=== PATIENT | female | born 1970 | race Caucasian/White ===

== ENCOUNTER 2020-02-12 15:24 | Emergency (ER) | payer SELFPAY ==
[2020-02-12] MEDS ORDERED: SODIUM CHLORIDE 0.9% 1000ML 1,000 ML IVS ONE (15:35)
[2020-02-12] MEDS ORDERED: SODIUM CHLORIDE 0.9% (FLUSH) 10 ML SYG IV PRN (15:35)
[2020-02-12] MEDS ORDERED: ONDANSETRON INJ 4 MG/2 ML VIAL IV ONE (15:57)
--- NOTE | 2020-02-12 16:13 | RAD ---
EXAM DESCRIPTION: Chest,1 View CLINICAL HISTORY: Weakness COMPARISON: None. IMPRESSION: Single AP portable upright view of the chest shows cardiac silhouette and pulmonary vasculature to be within normal limits. Lungs are normally aerated and clear. No obvious pleural effusion or pneumothorax is seen. Mild curvature of the lumbar spine with convexity towards the right. Electronically signed by: Dipesh Trujillo MD 02/12/2020 4:11 PM CDT
--- NOTE | 2020-02-12 17:18 | ED.PDOC ---
History of Present Illness - General Chief Complaint: GI Problem Stated Complaint: Vomiting, nausea Time Seen by Provider: 02/12/20 15:35 Source: patient, RN notes reviewed, Vital Signs reviewed, EMS notes reviewed Exam Limitations: no limitations - History of Present Illness Initial Comments: Patient is a 49-year-old white female who presents with complaints of generalized weakness and fatigue, nausea with associated vomiting. This started a few hours prior to arrival. Patient denies any other complaints. Nothing seems to make it better or worse. Nothing seems to exacerbate or alleviate the problem. Timing/Duration: 1-3 hours Severity: moderate Improving Factors: nothing Worsening Factors: nothing Associated Symptoms: fever/chills - Chills and shivering only Allergies/Adverse Reactions: Allergies NO KNOWN ALLERGY Allergy (Verified 02/12/20 15:38) Home Medications: Ambulatory Orders Cefdinir 300 mg PO BID #20 capsule 02/12/20 Ondansetron [Ondansetron Odt] 4 mg PO Q6HR #16 tab 02/12/20 Review of Systems - Review of Systems Constitutional: States: see HPI, chills. Denies: fever, malaise EENTM: States: no symptoms reported. Denies: eye pain, blurred vision, double vision Respiratory: States: no symptoms reported. Denies: cough, short of breath Cardiology: States: no symptoms reported. Denies: chest pain, palpitations, syncope Gastrointestinal/Abdominal: States: see HPI, nausea, vomiting. Denies: abdominal pain, constipation, diarrhea Genitourinary: States: no symptoms reported. Denies: dysuria, frequency Musculoskeletal: States: no symptoms reported. Denies: back pain, joint swelling, neck pain Skin: States: no symptoms reported. Denies: change in color, rash Neurological: States: no symptoms reported. Denies: tingling, tremors, weakness Endocrine: States: no symptoms reported. Denies: increased hunger, increased thirst, increased urine Hematologic/Lymphatic: Denies: blood clots, easy bleeding All other Systems: Reviewed and Negative Past Medical History (General) - Patient Medical History Hx Seizures: No Hx Stroke: No Hx Dementia: No Hx Asthma: No Hx of COPD: No Hx Cardiac Disorders: No Hx Congestive Heart Failure: No Hx Pacemaker: No Hx Hypertension: No Hx Thyroid Disease: No Hx Diabetes: No Hx Gastroesophageal Reflux: No Hx Renal Disease: No Hx Cancer: No Hx of HIV: No Hx Hepatitis C: No Hx MRSA: No Surgical History: no surgical history - Vaccination History Hx Tetanus, Diphtheria Vaccination: No Hx Influenza Vaccination: No Hx Pneumococcal Vaccination: No - Social History Hx Tobacco Use: Yes Hx Alcohol Use: Yes Hx Substance Use: No Hx Substance Use Treatment: No Hx Depression: No Family Medical History - Family History Mother Family History: Unknown Physical Exam - Physical Exam General Appearance: Alert, Anxious, Obvious distress, Ill Appearing, Well Developed, Well Groomed, Well Hydrated, Well Nourished Eye Exam: bilateral normal Ears, Nose, Throat: hearing grossly normal, normal ENT inspection, normal pharynx Neck: non-tender, full range of motion, supple, normal inspection Respiratory: chest non-tender, lungs clear, normal breath sounds, no respiratory distress, no accessory muscle use Cardiovascular/Chest: normal peripheral pulses, no edema, no gallop, no JVD, no murmur, bradycardia Peripheral Pulses: radial,right: 2+, radial,left: 2+ Gastrointestinal/Abdominal: normal bowel sounds, non tender, soft, no organomegaly, no pulsatile mass Back Exam: normal inspection, no CVA tenderness, no vertebral tenderness Extremity: normal range of motion, non-tender, normal inspection, no pedal edema, no calf tenderness Neurologic: technical rep II-XII nml as tested, no motor/sensory deficits, alert, normal mood/affect, oriented x 3 Skin Exam: other - Cool to the touch, pallor Lymphatic: no adenopathy Comments: Patient with rigors. Progress - Progress Progress: Differential diagnosis: Sepsis, UTI, pyelonephritis, gastroenteritis among others. 02/12/20 18:31 Patient is markedly improved after IV fluids and IV antibiotics. Her lactic acid is come down from 2.9-1.4. Urine, though it has some epithelial cells, is consistent with a urinary tract infection. I believe patient had rigors and strong possibility that she has some bacteremia. Plan on discharge home with follow-up with PCP in the next couple of days. I started patient on Rocephin tonight and will give her a prescription for cefdinir that she can start in the morning. Additionally I will give her a prescription for Zofran. I discussed this plan of care with the patient and she voices understanding and agreement. Hussein Carter M.D. #[id number] - Results/Orders Results/Orders: 02/12/20 15:35 Sodium Chloride 0.9% (Flush) [Saline Flush Syringe] 10 ml IV PRN PRN 02/12/20 15:50 BLOOD CULTURE Stat Laboratory Results - last 24 hr 02/12/20 02/12/20 02/12/20 15:50 15:50 15:50 WBC 7.6 RBC 4.44 Hgb 13.9 Hct 40.0 MCV 90.2 MCH 31.3 H MCHC 34.8 RDW 12.4 Plt Count 157 MPV 8.5 Absolute Neuts (auto) 6.10 Absolute Lymphs (auto) 1.20 Absolute Monos (auto) 0.20 Absolute Eos (auto) 0.00 Absolute Basos (auto) 0.00 Neutrophils % 80.5 H Lymphocytes % 15.9 L Monocytes % 2.6 Eosinophils % 0.5 L Basophils % 0.5 PT 11.2 H INR 1.13 PTT (SP) 20.8 L D-Dimer, Quantitative 174.0 Sodium 136 Potassium 3.5 L Chloride 105 Carbon Dioxide 19 L Anion Gap 15.5 BUN 20 H Creatinine 0.73 BUN/Creatinine Ratio 27.4 H Random Glucose 183 H Serum Osmolality 279.3 Lactic Acid Calcium 8.4 Total Bilirubin 0.5 AST 24 ALT 17 Alkaline Phosphatase 54 Creatine Kinase 53 CK-MB (CK-2) 1.0 CK-MB (CK-2) % Not Reportable Troponin I < 0.02 Serum Total Protein 7.2 Albumin 4.1 Globulin 3.1 Albumin/Globulin Ratio 1.3 Urine Color Urine Appearance Urine pH Ur Specific [place] Urine Protein Urine Glucose (UA) Urine Ketones Urine Blood Urine Nitrite Urine Bilirubin Urine Urobilinogen Ur Leukocyte Esterase Urine RBC Urine WBC Ur Epithelial Cells Urine Bacteria Urine Mucus 02/12/20 02/12/20 02/12/20 15:50 17:05 18:07 WBC RBC Hgb Hct MCV MCH MCHC RDW Plt Count MPV Absolute Neuts (auto) Absolute Lymphs (auto) Absolute Monos (auto) Absolute Eos (auto) Absolute Basos (auto) Neutrophils % Lymphocytes % Monocytes % Eosinophils % Basophils % PT INR PTT (SP) D-Dimer, Quantitative Sodium Potassium Chloride Carbon Dioxide Anion Gap BUN Creatinine BUN/Creatinine Ratio Random Glucose Serum Osmolality Lactic Acid 2.9 H* 1.4 Calcium Total Bilirubin AST ALT Alkaline Phosphatase Creatine Kinase CK-MB (CK-2) CK-MB (CK-2) % Troponin I Serum Total Protein Albumin Globulin Albumin/Globulin Ratio Urine Color Yellow Urine Appearance Clear Urine pH 5.5 Ur Specific [place] 1.025 Urine Protein Negative Urine Glucose (UA) 100 H Urine Ketones 40 H Urine Blood Trace-intact H Urine Nitrite Negative Urine Bilirubin Negative Urine Urobilinogen 0.2 Ur Leukocyte Esterase Negative Urine RBC 1-3 Urine WBC 3-5 H Ur Epithelial Cells 10-20 Urine Bacteria 3+ H Urine Mucus Trace EXAM DESCRIPTION: Chest,1 View CLINICAL HISTORY: Weakness COMPARISON: None. IMPRESSION: Single AP portable upright view of the chest shows cardiac silhouette and pulmonary vasculature to be within normal limits. Lungs are normally aerated and clear. No obvious pleural effusion or pneumothorax is seen. Mild curvature of the lumbar spine with convexity towards the right. Electronically signed by: Dipesh Trujillo MD 02/12/2020 4:11 PM CDT Vital Signs 02/12/20 02/12/20 02/12/20 15:35 15:39 16:24 Temperature 97.4 F L Pulse Rate [ 54 L 52 L 61 Left Radial] Respiratory 30 H 30 H 16 Rate Blood Pressure 123/60 124/42 [Right Arm] O2 Sat by Pulse 99 99 Oximetry 02/12/20 02/12/20 17:24 18:00 Temperature Pulse Rate [ 57 L 50 L Left Radial] Respiratory 16 14 Rate Blood Pressure 116/63 109/62 [Right Arm] O2 Sat by Pulse 97 98 Oximetry - EKG/XRAY/CT CT Ordered: No CT Interpretation Call Back: No Departure - Departure Clinical Impression: Rigors UTI (urinary tract infection) Qualifiers: Urinary tract infection type: acute cystitis Hematuria presence: without hematuria Qualified Code(s): N30.00 - Acute cystitis without hematuria Time of Disposition: 18:32 Disposition: Discharge to Home or Self Care Condition: Fair Departure Forms: ED Discharge - Pt. Copy, Patient Portal Self Enrollment Instructions: Urinary Tract Infection, Adult (DC) Diet: resume usual diet Activity: increase activity as tolerated Prescriptions: Ondansetron [Ondansetron Odt] 4 mg PO Q6HR #16 tab Cefdinir 300 mg PO BID #20 capsule Home Medications: Ambulatory Orders Cefdinir 300 mg PO BID #20 capsule 10/26/20 Ondansetron [Ondansetron Odt] 4 mg PO Q6HR #16 tab 02/12/20
[2020-02-12] MEDS ORDERED: cefTRIAXone SODIUM 1 GM in SODIUM CHL 0.9% 50ML MIN-BAG+ 50 ML IVPB ONE (17:47)
[2020-02-12 18:51] VITALS: BP 102/57; TEMP 97.5; O2SAT 99
== END 2020-02-12 18:43 | disposition home or self-care (01) ==
LOC: ER 15:24
DX: N30.00 Acute cystitis without hematuria (principal); R68.89 Other general symptoms and signs; R11.2 Nausea with vomiting, unspecified; R53.1 Weakness
CPT/HCPCS: 36415; 71045; 80053; 81001; 82550; 82553; 83605; 84484; 85025; 85379; 85610; 85730; 87040; J0696; J2405; J7030; J7050